=== PATIENT | female | born 1990 | race Caucasian/White ===

== ENCOUNTER 2016-10-31 11:01 | Emergency (ER) | payer OTHER ==
[~2016-10-31] VITALS: Ht 167.6 cm; Wt 68.3 kg
[~2016-10-31 11:01] MED LIST: CLON1TAB3 PO
[2016-10-31 11:08] VITALS: TEMP 36.9; Ht 167.6 cm; Wt 68.3 kg
[2016-10-31] MEDS ORDERED: ZLF/100 PO (11:33)
[2016-10-31] MEDS ORDERED: BSP15 PO (11:33)
[2016-10-31] MEDS ORDERED: AMPH30CA3 PO (11:33)
[2016-10-31] MEDS ORDERED: HYDROXYZINE PO (11:33)
[2016-10-31 11:34] LABS: BASO % 0.3 %; BASO ABS # 0.03 K/uL (0-0.2); COMPLETE YES; EOS % 1.3 %; HEMATOCRIT 40.2 % (37-47); IG% 0.3 %; LYMPH % 22.2 %; LYMPH ABS # 2.54 K/uL (1.2-3.4); MEAN CELL VOLUME 85.7 fL (80-100); MEAN CORPUSCULAR HEMOGLOBIN 29.6 pg (25-34); MEAN CORPUSCULAR HGB CONC 34.6 g/dl (32-36); MEAN PLATELET VOLUME 9.7 fL (7.4-10.4); MONO % 5.9 %; PLATELET COUNT 246 K/uL (130-400); RED BLOOD COUNT 4.69 M/uL (4.2-5.4); WHITE BLOOD COUNT 11.42 K/uL (4.8-10.8)
[2016-10-31 11:45] LABS: BUN/CREATININE RATIO 13.9 (10-20); CALCIUM 8.5 mg/dl (8.5-10.1); CREATININE 0.95 mg/dl (0.60-1.20); POTASSIUM 3.2 mmol/L (3.5-5.1)
[2016-10-31 11:48] LABS: ALB/GLOB RATIO 0.9 (0.9-2)
[2016-10-31 11:52] LABS: URINE APPEARANCE CLOUDY (CLEAR); URINE BILIRUBIN NEG (NEG); URINE COLOR DK YELLOW; URINE EPITHELIAL CELL AUTO >30 /lpf (0-5); URINE NITRITE NEG (NEG); URINE SPECIFIC GRAVITY 1.025 (1.000-1.030); UROBILINOGEN NEG (NEG); ZZUR CULT IF INDIC CLEAN CATCH YES
[2016-10-31 12:00] LABS: MANUAL MICROSCOPIC REQUIRED? NO; REVIEW REQ? YES
[2016-10-31 12:15] LABS: URINE MUCUS PRESENT (NONE PRSENT)
--- NOTE | 2016-10-31 12:54 | EMERGENCY ROOM VISIT NOTE ---
History Report prepared by Deanne: Debora Barraza Under the Supervision of: Dr. Marc Guevara D.O. First contact with patient: 12:46 Chief Complaint: UNRESPONSIVE Stated Complaint: OVERDOSE History of Present Illness The patient is a 26 year old female who presents to the Emergency Room with complaints of an epsiode of unresponsiveness following an opiate overdose occurring at 9am this morning. The patient states that she has been having issues at home with her mother. She went to her grandmother's house and took 4 Percocet's at once. The pills are her friend's. She did take the pills orally. The patient was found unresponsive in a chair when her grandmother called for EMS. Upon arrival, EMS gave the patient Narcan and patient become responsive. She since has been responsive. Patient denies suicidal ideation. She states she took the pills due to worsening mouth pain and issues with mother. Patient does not she took Klonopin last night. Patient has an extensive psychiatric history including posttraumatic stress disorder, ADD, depression, OCD. Patient denies other drug or alcohol use. Source of History: patient Onset: 9am this morning Position: other (global) Quality: other (unresponsiveness) Timing: other (episode) Note: Patient overdose on opiates. She denies suicidal ideations, other drug or alcohol use. Review of Systems See HPI for pertinent positives & negatives. A total of 10 systems reviewed and were otherwise negative. Past Medical & Surgical Medical Problems: (1) Asthma (2) Chronic gastric ulcer Surgical Problems: (1) H/O wisdom tooth extraction Family History Patient reports no known family medical history. Social History Smoking Status: Current Every Day Smoker Alcohol Use: none Drug Use: none Marital Status: single Housing Status: lives with family Occupation Status: employed Current/Historical Medications Scheduled Amphetamine-Dextroamphetamine 30MG (Adderall Xr 30MG), 30 MG PO BID Buspirone HCl (Buspirone HCl), 15 MG PO BID Clonazepam (Klonopin), 1 MG PO BID Sertraline HCl (Sertraline HCl), 200 MG PO DAILY [Hydroxyzine], 1 TAB PO DAILY Allergies Coded Allergies: Hydrocodone (Verified Adverse Reaction, Unknown, GI SYMPTOMS, 07/26/16) Physical Exam Vital Signs Date Time Temp Pulse Resp B/P Pulse Ox O2 Delivery O2 Flow Rate FiO2 2/24/17 14:53 83 18 115/60 99 10/31/16 14:22 83 18 115/60 99 Room Air 10/31/16 12:18 89 16 115/70 99 Room Air 10/31/16 11:08 36.9 109 15 113/77 100 Room Air Physical Exam GENERAL: Patient is awake, alert, very anxious but appears to be in no pain. Patient is resting comfortably and showing no signs of anxiety EYES: The conjunctivae are clear. The pupils are round and reactive. EARS, NOSE, MOUTH AND THROAT: The nose is without any evidence of any deformity. Mucous membranes are moist tongue is midline NECK: The neck is nontender and supple. RESPIRATORY: Diminished throughout, scattered expiratory wheezing in all george , no dyspnea or tachypnea noted. CARDIOVASCULAR: Regular rate and rhythm noted there no murmurs rubs or gallops normal S1 normal S2 GASTROINTESTINAL: The abdomen is soft. Bowel sounds are present in all quadrants. Abdomen is nontender MUSCULOSKELETAL/EXTREMITIES: There is no evidence of gross deformity full range of motion is noted in the hips and shoulders SKIN: There is no obvious evidence of any rash. There are no petechiae, pallor or cyanosis noted. NEUROLOGIC: Patient is awake alert and oriented x3 strength is symmetric patellar reflexes are 2+ bilaterally PSYCH: No active suicidal or homicidal ideation noted. Medical Decision & Procedures ER Provider Diagnostic Interpretation: X-ray results as stated below per interpretation by me and the radiologist. CHEST ONE VIEW PORTABLE CLINICAL HISTORY: cough dyspnea COMPARISON STUDY: No previous studies for comparison. FINDINGS: The bones soft tissues and hemidiaphragms are normal. The cardiomediastinal silhouette is normal. The lungs are clear. The pulmonary vasculature is normal. IMPRESSION: Negative chest. Electronically signed by: Bennett Thomas M.D. 10/31/2016 1:48 PM Dictated Date/Time: 10/31/2016 1:47 PM Laboratory Results 10/31/16 10:00 Red Blood Count 4.69, Mean Corpuscular Volume 85.7, Mean Corpuscular Hemoglobin 29.6, Mean Corpuscular Hemoglobin Concent 34.6, Mean Platelet Volume 9.7, Neutrophils (%) (Auto) 70.0, Lymphocytes (%) (Auto) 22.2, Monocytes (%) (Auto) 5.9, Eosinophils (%) (Auto) 1.3, Basophils (%) (Auto) 0.3, Neutrophils # (Auto) 8.00, Lymphocytes # (Auto) 2.54, Monocytes # (Auto) 0.67, Eosinophils # (Auto) 0.15, Basophils # (Auto) 0.03 10/31/16 10:00 Test 10/31/16 10:00 10/31/16 11:00 10/31/16 11:25 White Blood Count 11.42 K/uL (4.8-10.8) Red Blood Count 4.69 M/uL (4.2-5.4) Hemoglobin 13.9 g/dL (12.0-16.0) Hematocrit 40.2 % (37-47) Mean Corpuscular Volume 85.7 fL (80-100) Mean Corpuscular Hemoglobin 29.6 pg (25-34) Mean Corpuscular Hemoglobin Concent 34.6 g/dl (32-36) Platelet Count 246 K/uL (130-400) Mean Platelet Volume 9.7 fL (7.4-10.4) Neutrophils (%) (Auto) 70.0 % Lymphocytes (%) (Auto) 22.2 % Monocytes (%) (Auto) 5.9 % Eosinophils (%) (Auto) 1.3 % Basophils (%) (Auto) 0.3 % Neutrophils # (Auto) 8.00 K/uL (1.4-6.5) Lymphocytes # (Auto) 2.54 K/uL (1.2-3.4) Monocytes # (Auto) 0.67 K/uL (0.11-0.59) Eosinophils # (Auto) 0.15 K/uL (0-0.5) Basophils # (Auto) 0.03 K/uL (0-0.2) RDW Standard Deviation 39.5 fL (36.4-46.3) RDW Coefficient of Variation 12.5 % (11.5-14.5) Immature Granulocyte % (Auto) 0.3 % Immature Granulocyte # (Auto) 0.03 K/uL (0.00-0.02) Anion Gap 11.0 mmol/L (3-11) Est Creatinine Clear Calc Drug Dose 84.0 ml/min Estimated GFR () 95.8 Estimated GFR (Non- 82.7 BUN/Creatinine Ratio 13.9 (10-20) Calcium Level 8.5 mg/dl (8.5-10.1) Total Bilirubin 0.7 mg/dl (0.2-1) Aspartate Amino Transf (AST/SGOT) 25 U/L (15-37) Alanine Aminotransferase (ALT/SGPT) 24 U/L (12-78) Alkaline Phosphatase 84 U/L (45-117) Total Protein 7.3 gm/dl (6.4-8.2) Albumin 3.5 gm/dl (3.4-5.0) Globulin 3.8 gm/dl (2.5-4.0) Albumin/Globulin Ratio 0.9 (0.9-2) Salicylates Level 1.8 mg/dl (2.8-20) Acetaminophen Level < 2 ug/ml (10-30) Urine Color DK YELLOW Urine Appearance CLOUDY (CLEAR) Urine pH 5.0 (4.5-7.5) Urine Specific [place] 1.025 (1.000-1.030) Urine Protein 1+ (NEG) Urine Glucose (UA) NEG (NEG) Urine Ketones NEG (NEG) Urine Occult Blood NEG (NEG) Urine Nitrite NEG (NEG) Urine Bilirubin NEG (NEG) Urine Urobilinogen NEG (NEG) Urine Leukocyte Esterase TRACE (NEG) Urine WBC (Auto) 5-10 /hpf (0-5) Urine RBC (Auto) 0-4 /hpf (0-4) Urine Hyaline Casts (Auto) 1-5 /lpf (0-5) Urine Epithelial Cells (Auto) >30 /lpf (0-5) Urine Bacteria (Auto) 2+ (NEG) Urine Renal Epithelial Cells /lpf (0-5) Urine Pathogenic Casts /lpf (0) Urine Mucus PRESENT (NONE PRSENT) Urine Test NEG (NEG) Urine Opiates Screen POS (NEG) Urine Methadone, Qualitative NEG (NEG) Urine Barbiturates NEG (NEG) Urine Phencyclidine (PCP) Level NEG (NEG) Ur Amphetamine/Methamphetamine NEG (NEG) MDMA (Ecstasy) Screen NEG (NEG) Urine Benzodiazepines Screen NEG (NEG) Urine Cocaine Metabolite NEG (NEG) Urine Marijuana (THC) POS (NEG) Laboratory results per my review. ED Course 1247: The patient was evaluated in room C6. A complete history and physical examination were performed. 1449: Upon reevaluation, the patient is hemodynamically stable. I discussed the results and treatment plan with her. She verbalized agreement of the treatment plan. She was discharged home. Medical Decision Differential diagnosis: Etiologies such as overdose, toxicologic, infection, hypoglycemia, electrolyte abnormalities, cardiac sources, intracerebral event, neurologic, as well as others were entertained. Nursing notes reviewed. Additional history is obtained from the prehospital personnel. The patient is a 26-year-old female who presented to the emergency department for an evaluation after an opiate overdose. The patient admits that she took extra doses of Percocet. This is a prescription which was given to a friend. The patient denies any suicidal or homicidal ideation at this time. She did receive Narcan prior to arrival. The patient was observed in the emergency department for a period of time. She was reevaluated multiple times. She did not have an oxygen requirement and had a normal oxygen saturation on final reevaluation. The patient was reevaluated and asked about any suicidal ideation multiple times. She was encouraged to continue all medications only as prescribed and only take medications that are prescribed to her. She was also encouraged to return to the emergency department immediately if symptoms change worsen or the need arises. Otherwise she was encouraged to follow-up with her primary care physician. Impression Primary Impression: Opiate overdose Scribe Attestation The scribe's documentation has been prepared under my direction and personally reviewed by me in its entirety. I confirm that the note above accurately reflects all work, treatment, procedures, and medical decision making performed by me. Departure Information Dispostion Home / Self-Care Referrals No Doctor, Assigned (PCP) Forms HOME CARE DOCUMENTATION FORM, IMPORTANT VISIT INFORMATION, WORK / SCHOOL INSTRUCTIONS Patient Instructions ED Overdose Opiate, My [facility] Additional Instructions Continue all medications only as prescribed. Only take medications that are prescribed to you. Call crisis or return to the emergency department immediately symptoms change worsen or the need arises. Problem Qualifiers Primary Impression: Opiate overdose Encounter type: initial encounter Injury intent: accidental or unintentional Qualified Codes: T40.601A - Poisoning by unspecified narcotics, accidental (unintentional), initial encounter
[2016-10-31 13:14] LABS: ACETAMINOPHEN < 2 ug/ml (10-30)
[2016-10-31 13:23] LABS: BENZODIAZEPINE, URINE NEG (NEG); COCAINE,URINE NEG (NEG); PHENCYCLIDINE, URINE NEG (NEG)
--- NOTE | 2016-10-31 13:49 | DIAGNOSTIC IMAGING REPORT ---
CHEST ONE VIEW PORTABLE CLINICAL HISTORY: cough dyspnea COMPARISON STUDY: No previous studies for comparison. FINDINGS: The bones soft tissues and hemidiaphragms are normal. The cardiomediastinal silhouette is normal. The lungs are clear. The pulmonary vasculature is normal. IMPRESSION: Negative chest. Electronically signed by: Bennett Thomas M.D. 10/31/2016 1:48 PM Dictated Date/Time: 10/31/2016 1:47 PM
[2016-10-31 14:53] VITALS: BP 115/60; PULSE 83; O2SAT 99
[2016-11-04 07:05] LABS: COD UR 52 NG/ML (CUTOFF=50); HYDROCOD UR NEGATIVE NG/ML (CUTOFF=50); HYDROMOR UR NEGATIVE NG/ML (CUTOFF=50); MORPHINE UR 3700 NG/ML (CUTOFF=50); NORHYDROCODONE CONF UR NEGATIVE NG/ML (CUTOFF=50); OXYMORPH UR NEGATIVE NG/ML (CUTOFF=50)
== END 2016-10-31 14:55 | disposition home or self-care (01) ==
LOC: EDUNIT# 11:01 → C.EDC 11:04
DX: T40.2X1A Poisoning by other opioids, accidental (unintentional), initial encounter (principal); F17.200 Nicotine dependence, unspecified, uncomplicated

== ENCOUNTER 2017-08-23 01:07 | Emergency (ER) | payer OTHER ==
[~2017-08-23] VITALS: Ht 167.6 cm; Wt 65.0 kg
[~2017-08-23 01:07] MED LIST changes: +AMPH30CA3 PO; +BSP15 PO; +BUPR100T8 PO; +NRN100 PO
[2017-08-23 01:09] VITALS: TEMP 36.6; O2SAT 100; Ht 167.6 cm; Wt 65.0 kg
--- NOTE | 2017-08-23 01:24 | EMERGENCY ROOM VISIT NOTE ---
History Report prepared by Deanne: Karina Bartholomew Under the Supervision of: Dr. Mellisa Bradley D.O. First contact with patient: 01:08 Chief Complaint: OVERDOSE (INTENTIONAL) Stated Complaint: OVERDOSE History of Present Illness The patient is a 27 year old female who presents to the Emergency Room with complaints of an overdose occurring shortly prior to arrival. The patient accidentally overdosed on heroine. She reports that she snorted it and was using it recreationally. She reports that she has been clean for 3 months, but relapsed due to increased stress and depression. The patient denies thoughts of hurting herself. The patient was found unresponsive by police, was given 4 mg of Narcan intranasally, and vomited on the way here. She states that she feels better now. Source of History: patient Onset: shortly prior to arrival Position: other (global) Quality: other (overdose ) Timing: constant Associated Symptoms: + vomiting Review of Systems See HPI for pertinent positives & negatives. A total of 10 systems reviewed and were otherwise negative. Past Medical & Surgical Medical Problems: (1) Asthma (2) Chronic gastric ulcer Surgical Problems: (1) H/O wisdom tooth extraction Family History Patient reports no known family medical history. Social History Smoking Status: Current Every Day Smoker Alcohol Use: none Drug Use: none Marital Status: single Housing Status: lives with family Occupation Status: employed Current/Historical Medications Scheduled Amphetamine-Dextroamphetamine 30MG (Adderall Xr 30MG), 30 MG PO BID Bupropion (Wellbutrin Sr), 100 MG PO DAILY Buspirone HCl (Buspirone HCl), 15 MG PO BID Clonazepam (Klonopin), 1 MG PO BID/PRN Etonogestrel/Ethinyl Estradiol (Nuvaring), 1 EA VAGRING MONTHLY Gabapentin (Gabapentin), 100 MG PO TID Allergies Coded Allergies: Hydrocodone (Verified Adverse Reaction, Unknown, GI SYMPTOMS, 07/26/16) Physical Exam Vital Signs Date Time Temp Pulse Resp B/P (MAP) Pulse Ox O2 Delivery O2 Flow Rate FiO2 08/23/17 01:53 100 16 131/93 100 Room Air 08/23/17 01:16 103 08/23/17 01:09 36.6 118 18 113/82 100 Room Air 08/23/17 01:09 100 Room Air Physical Exam GENERAL: alert, tearful, well nourished, no distress, non-toxic EYE EXAM: normal conjunctiva, PERRL and EOM's grossly intact OROPHARYNX: no exudate, no erythema, lips, buccal mucosa, and tongue normal and mucous membranes are moist NECK: supple, no nuchal rigidity, no adenopathy, non-tender LUNGS: Clear to auscultation. Normal chest wall mechanics HEART: tachycardic rate, regular rhythm, no murmurs, S1 normal and S2 normal ABDOMEN: abdomen soft, non-tender, normo-active bowel sounds, no masses, no rebound or guarding. BACK: Back is symmetrical on inspection and there is no deformity, no midline tenderness, no CVA tenderness. SKIN: no rashes and no bruising UPPER EXTREMITIES: upper extremities are grossly normal. LOWER EXTREMITIES: No pitting edema. NEURO EXAM: Normal sensorium, cranial nerves II-XII grossly intact, normal speech, no gross weakness of arms, no gross weakness of legs. PSYCH: Admits to depression and anxiety, but denies SI. Medical Decision & Procedures ED Course 0110: The patient was evaluated in room A12B. A complete history and physical exam was performed. 0230: I re-assessed the patient. She is doing well. There were no wheezes, rhonchi, or rales noted. 0238: Upon reevaluation, the patient is feeling better. I discussed the findings and the treatment plan with the patient. She verbalizes agreement and understanding. She was discharged home. Medical Decision Differential diagnosis: Etiologies such as toxicologic, infection, hypoglycemia, electrolyte abnormalities, cardiac sources, intracerebral event, neurologic, as well as others were entertained. Medication Reconcilliation Current Medication List: was personally reviewed by me Blood Pressure Screening Patient's blood pressure: Normal blood pressure Impression Primary Impression: Heroin overdose Scribe Attestation The scribe's documentation has been prepared under my direction and personally reviewed by me in its entirety. I confirm that the note above accurately reflects all work, treatment, procedures, and medical decision making performed by me. Departure Information Dispostion Home / Self-Care Referrals No Doctor, Assigned (PCP) Forms HOME CARE DOCUMENTATION FORM, IMPORTANT VISIT INFORMATION, WORK / SCHOOL INSTRUCTIONS Patient Instructions My [facility] Additional Instructions Please do not use drugs. Use of drugs can result in long-term health complications, incarceration, and even . Please follow-up with your therapist and seek out additional support groups. If you have any thoughts of wanting to hurt himself, develop cough or trouble breathing, fevers, worsening vomiting or diarrhea, or you have any other new and concerning symptoms, please return the emergency room. Problem Qualifiers Primary Impression: Heroin overdose Encounter type: initial encounter Injury intent: accidental or unintentional Qualified Codes: T40.1X1A - Poisoning by heroin, accidental ( unintentional), initial encounter
[2017-08-23] MEDS ORDERED: ETONMIS VAGRING (01:31)
[2017-08-23 02:50] VITALS: BP 119/74; PULSE 81; O2SAT 97
== END 2017-08-23 02:51 | disposition home or self-care (01) ==
LOC: EDBD 01:07 → C.EDA 01:08
DX: T40.1X1A Poisoning by heroin, accidental (unintentional), initial encounter (principal); J45.909 Unspecified asthma, uncomplicated; F17.200 Nicotine dependence, unspecified, uncomplicated; Z87.19 Personal history of other diseases of the digestive system; Z79.899 Other long term (current) drug therapy; Z88.5 Allergy status to narcotic agent